=== PATIENT | female | born 1995 | race Caucasian/White ===

== ENCOUNTER 2017-01-12 18:25 | Emergency (ER) | payer OTHER ==
[2017-01-12] MEDS ORDERED: PHENAZOPYRIDINE 100 MG TAB PO STA (19:56)
[2017-01-12] MEDS ORDERED: CIPROFLOXACIN HCL 250 MG TAB PO STA (19:58)
[2017-01-12] MEDS ORDERED: ACETAMINOPHEN TAB 500 MG TAB PO STA (19:58)
--- NOTE | 2017-01-12 20:00 | ED ---
Female Urogenital HPI - General Chief complaint: Urogenital Stated complaint: Blood in urine sent by Urgent Care Time Seen by Provider: 01/12/17 19:26 Source: patient, RN notes reviewed, old records reviewed Mode of arrival: ambulatory Limitations: no limitations - History of Present Illness Initial comments: This is a 21-year-old female presenting to the emergency Department chief complaint of blood in the urine and dysuria for one day. Patient reports she went to an urgent care and intermittent blood in her urine. She is on her last menstrual cycle. Patient states that she's had no fever or chills. She reports that she's not concerned for sexual transmitted infection. She denies any back pain, or abdominal pain. She reports that she has never had UTI before. Last Menstrual Period: 01/05/17 - Related Data Home Medications Medication Instructions Recorded Confirmed Levothyroxine Sodium [Synthroid] 75 mcg PO [id number] 01/12/17 01/12/17 Levothyroxine Sodium [Synthroid] 112.5 mcg PO PAIGE 01/12/17 01/12/17 Previous Rx's Medication Instructions Recorded Ciprofloxacin [Ciprofloxacin Oral 500 mg PO BID 5 Days 01/12/17 Susp] Phenazopyridine [Pyridium] 100 mg PO TID #9 tablet 01/12/17 Allergies Allergy/AdvReac Type Severity Reaction Status Date / Time No Known Allergies Allergy Verified 01/12/17 19:34 Review of Systems ROS Statement: Those systems with pertinent positive or pertinent negative responses have been documented in the HPI. ROS Other: All systems not noted in ROS Statement are negative. Past Medical History Past Medical History: No Reported History History of Any Multi-Drug Resistant Organisms: None Reported Past Surgical History: No Surgical Hx Reported Past Psychological History: No Psychological Hx Reported Smoking Status: Never smoker Past Alcohol Use History: None Reported Past Drug Use History: None Reported General Exam - General Exam Comments Initial Comments: Well appearing 21 year old female, no distress. Limitations: no limitations General appearance: alert, in no apparent distress Head exam: Present: atraumatic, normocephalic, normal inspection Eye exam: Present: normal appearance, PERRL, EOMI. Absent: scleral icterus, conjunctival injection, periorbital swelling ENT exam: Present: normal exam, mucous membranes moist Neck exam: Present: normal inspection. Absent: tenderness, meningismus, lymphadenopathy Respiratory exam: Present: normal lung sounds bilaterally. Absent: respiratory distress, wheezes, rales, rhonchi, stridor Cardiovascular Exam: Present: regular rate, normal rhythm, normal heart sounds. Absent: systolic murmur, diastolic murmur, rubs, gallop, clicks GI/Abdominal exam: Present: soft, normal bowel sounds. Absent: distended, tenderness, guarding, rebound, rigid Extremities exam: Present: normal inspection, full ROM, normal capillary refill. Absent: tenderness, pedal edema, joint swelling, calf tenderness Back exam: Present: normal inspection Neurological exam: Present: alert, oriented X3, CN II-XII intact Psychiatric exam: Present: normal affect, normal mood Skin exam: Present: warm, dry, intact, normal color. Absent: rash Course Vital Signs 01/12/17 01/12/17 01/12/17 18:27 20:22 21:00 Temperature 98.2 F 98.0 F Pulse Rate 119 H 105 H 94 Respiratory 16 18 18 Rate Blood Pressure 129/76 114/79 126/77 O2 Sat by Pulse 100 98 99 Oximetry Medical Decision Making - Medical Decision Making This is a 21-year-old female presenting to the emergency Department chief complaint of blood in the urine and dysuria for one day. Patient reports she went to an urgent care and intermittent blood in her urine. Patient has no abdominal tenderness, or CVA tenderness. Urinalysis is positive for RBC, WBC, and nitrites. Patient is exhibiting signs of heorrhagic cystitis. Patient will be started on ciprofloxacin, patient needs liquid form as she cannot take pills. Patient also discharged with pyridium. Patient mother understands if she exhibits more concerning signs such as high fever, and abdominal pain and back pain, they need to return to the . Patient and mother agree to treatment plan and will comply. - Lab Data Lab Results 01/12/17 01/12/17 Range/Units 19:51 19:51 Urine Color Light Red Urine Appearance Cloudy H (Clear) Urine pH 6.0 (5.0-8.0) Ur Specific [place] 1.004 (1.001-1.035) Urine Protein 2+ H (Negative) Urine Glucose (UA) Negative (Negative) Urine Ketones Trace H (Negative) Urine Blood Large H (Negative) Urine Nitrite Negative (Negative) Urine Bilirubin Negative (Negative) Urine Urobilinogen <2.0 (<2.0) mg/dL Ur Leukocyte Esterase Large H (Negative) Urine RBC 18 H (0-5) /hpf Urine WBC 70 H (0-5) /hpf Ur Squamous Epith Cells 2 (0-4) /hpf Urine Bacteria Moderate H (None) /hpf Urine HCG, Qual Not Detected (Not Detectd) Disposition Clinical Impression: Cystitis Disposition: HOME SELF-CARE Condition: Good Instructions: Urinary Tract Infection in Women (ED) Additional Instructions: PAtient is to rest, increase fluids. Take antibiotics as directed. Return to the emergency department if any alarming signs or symptoms occur. Prescriptions: Ciprofloxacin [Ciprofloxacin Oral Susp] 500 mg PO BID 5 Days Phenazopyridine [Pyridium] 100 mg PO TID #9 tablet Referrals: Manuel Gee MD [Primary Care Provider] - 1-2 days Time of Disposition: 20:43
[2017-01-12 20:14] LABS: Appearance,Urine Cloudy (Clear); Bacteria,Urine Moderate /hpf; Bilirubin,Urine Negative (Negative); Glucose,Urine (UA) Negative (Negative); Ketones,Urine Trace (Negative); Leukocyte Esterase,Urine Large (Negative); Nitrite,Urine Negative (Negative); Particle Count 16799; Protein,Urine 2+ (Negative); RBC,Urine 18 /hpf (0-5); Specific Gravity,Urine 1.004 (1.001-1.035); Squamous Epithelial Cell,Urine 2 /hpf (0-4); UA Billing (MACRO vs. MICRO) MICRO; Urobilinogen,Urine <2.0 mg/dL (<2.0); WBC,Urine 70 /hpf (0-5)
[2017-01-12 20:23] VITALS: RESP 18
[2017-01-12 21:01] VITALS: BP 126/77; PULSE 94; TEMP 98
== END 2017-01-12 21:25 | disposition home or self-care (01) ==
LOC: EC 18:25
DX: N30.91 Cystitis, unspecified with hematuria (principal); Z79.899 Other long term (current) drug therapy
CPT/HCPCS: 81001; 81025; 87077; 87086; 87186; 87491; 87591; 99283

== ENCOUNTER → 2021-07-09 | Outpatient (CLI) | payer BC, OTHER ==
--- NOTE | 2021-07-10 08:14 | USB ---
Reason for exam: clinical finding. Indicated problem(s): palpable abnormality in the left breast. Physical Findings: Nurse Summary: 0.5cm palpable periareolar 3 o'clock (nurse db). US Breast LT Left limited breast ultrasound including focal area of concern, retroareolar and axilla demonstrates a 0.5 x 0.5 x 0.4cm round, cystic, complex lesion at 3 o'clock and a 0.4 x 0.4 x 0.2cm oval, cystic, complex lesion at 3 o'clock. These results were verbally communicated with the patient and result sheet given to the patient on 07/09/21. ASSESSMENT: Probably benign, BI-RAD 3 RECOMMENDATION: Ultrasound of the left breast in 6 months.
== END | disposition home or self-care (01) ==
LOC: RADUSWWP 14:52
PROVIDERS: ATTEND Obstetrics & Gynecology
DX: N63.0 Unspecified lump in unspecified breast (principal)

== ENCOUNTER → 2022-02-10 | Outpatient (CLI) | payer BC ==
--- NOTE | 2022-02-10 09:01 | USB ---
Prior Study Comparison: 07/09/2021 Left Diagnostic Ultrasound, [facility]. Findings: The area of palpable concern of the left breast, the axilla of the left breast and the retroareolar of the left breast were scanned. Limited left breast ultrasound including focal area concern and, retroareolar and axilla demonstrates a 0.5 x 0.4 x 0.5 cm round, cystic, complex lesion at 3:00 adjacent to the nipple. This is unchanged from prior examination. Previous redemonstrated cystic complex lesion measuring 0.4 cm at 3:00 is not visualized on today's exam. Overall Assessment: Probably benign, BI-RAD 3 Management: Diagnostic Breast Ultrasound of the left breast in 6 months. A clinical breast exam by your physician is recommended on an annual basis and results should be correlated with mammographic findings. Electronically signed and approved by: Frederick Rausch D.O.
== END | disposition home or self-care (01) ==
LOC: RADUSWWP 08:27
PROVIDERS: ATTEND Obstetrics & Gynecology
DX: N63.0 Unspecified lump in unspecified breast (principal); N60.09 Solitary cyst of unspecified breast